=== PATIENT | female | born 1945 | race Caucasian/White ===

== ENCOUNTER 2017-11-01 10:19 | Day surgery (SDC) | payer MEDICARE ==
[2017-10-31 14:06] VITALS: BMI 43.3
[2017-11-01] MEDS ORDERED: Propofol 1,000 MG/100 ML VIAL IV ONE (11:14)
[2017-11-01] MEDS ORDERED: Midazolam HCl 2 mg/2 ml Vial ONE (11:36)
--- NOTE | 2017-11-01 14:00 | MRI ---
MRI LUMBAR SPINE WITHOUT CONTRAST: INDICATIONS: Low back pain. Left leg pain. COMPARISON: None. TECHNIQUE: Multiplanar, multisequential imaging of the lumbar spine obtained. FINDINGS: There is mild anterior wedging of the L1 vertebra. Prominent anterior osteophytes are noted at T12-L 1 and L1-L2. Loss of disk space at L1-L2 and degenerative disk and endplate changes at L1-L2. Sligh t posterior listhesis at L1-L2 is noted. The other lumbar vertebrae maintain height. Moderate degen erative changes are seen at all levels. Loss of disk space is also noted at L4-L5 and at L5-S1. At T12-L1, mild diffuse disk bulge without central canal stenosis. At L1-L2, slight posterior listhesis, as noted above, with broad-based disk bulge. Facet hypertrophy . Mild central canal stenosis. At L2-L3, mild disk bulge. Mild facet arthrosis. Small protrusion paracentrally, on the left, with slight inferior extension. Mild central canal stenosis. At L3-L4, annular fissure with broad-based disk bulge. Facet and ligamentous hypertrophy. Mild to m oderate central canal stenosis. There is bilateral foraminal stenosis with impingement on the exitin g left L3 nerve root due to facet hypertrophy. At L4-L5, mild diffuse disk bulge, Prominent facet hypertrophy. Moderate central canal stenosis. B ilateral foraminal stenosis secondary to hypertrophic change. At L5-S1, minimal disk bulge. No significant central canal stenosis. IMPRESSION: Multilevel degenerative disk changes with posterior disk bulges and protrusions, as described above. POS: [facility]
== END 2017-11-01 13:45 | disposition home or self-care (01) ==
LOC: SDC/OP 10:19
PROVIDERS: ATTEND Neurological Surgery
DX: M48.062 Spinal stenosis, lumbar region with neurogenic claudication (principal); M47.816 Spondylosis without myelopathy or radiculopathy, lumbar region
CPT/HCPCS: 72148; J2250; J2704